=== PATIENT | female | born 1960 | race Caucasian/White ===

== ENCOUNTER 2016-05-24 15:53 | Emergency (ER) | payer OTHER ==
[2016-05-24] MEDS ORDERED: ACETAMINOPHEN 500 MG TABLET ONE (16:30)
[2016-05-24] MEDS ORDERED: METHOCARBAMOL 750 MG TABLET ONE (16:30)
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
== END 2016-05-24 17:53 | disposition home or self-care (01) ==
LOC: ED 15:53
DX: M25.512 Pain in left shoulder (principal); M62.838 Other muscle spasm; I25.2 Old myocardial infarction; F17.210 Nicotine dependence, cigarettes, uncomplicated
CPT/HCPCS: 71020; 73030; 99283 ×2; A9270 ×2